=== PATIENT | male | born 1960 | race Caucasian/White ===

== ENCOUNTER 2019-02-18 06:32 | Day surgery (SDC) | payer OTHER ==
[2019-02-18] MEDS ORDERED: MIDAZOLAM 1 MG/ML 2 ML INJ ×2 (08:54)
[2019-02-18] MEDS ORDERED: FENTAnyl 50 MCG/ML VIAL (08:54)
== END 2019-02-18 10:53 | disposition home or self-care (01) ==
LOC: GIL 06:32
DX: K29.30 Chronic superficial gastritis without bleeding (principal)
CPT/HCPCS: 43239; 88305; 88312